=== PATIENT | female | born 1955 | race Caucasian/White ===

== ENCOUNTER → 2016-08-13 | Outpatient (CLI) | payer MEDICARE | LOC: US 07:32 | DX: D47.3 Essential (hemorrhagic) thrombocythemia (principal); R16.0 Hepatomegaly, not elsewhere classified | CPT/HCPCS: 76705 ==

== ENCOUNTER → 2020-07-17 | Outpatient (CLI) | payer OTHER | LOC: KOH-I 12:27 | DX: F17.210 Nicotine dependence, cigarettes, uncomplicated (principal); R59.9 Enlarged lymph nodes, unspecified; R91.8 Other nonspecific abnormal finding of lung field | CPT/HCPCS: 71271 ==

== ENCOUNTER → 2020-09-27 | Outpatient (CLI) | payer OTHER | LOC: HEART 5 12:02 | DX: J41.1 Mucopurulent chronic bronchitis (principal) | CPT/HCPCS: 94010 ==

== ENCOUNTER → 2020-12-11 | Outpatient (CLI) | payer OTHER | LOC: EMI 13:00 | DX: M54.9 Dorsalgia, unspecified (principal); M51.36 Other intervertebral disc degeneration, lumbar region; M43.16 Spondylolisthesis, lumbar region | CPT/HCPCS: 72148 ==

== ENCOUNTER → 2020-12-26 | Outpatient (CLI) | payer OTHER ==
[2020-12-26 15:25] LABS: HEMOGLOBIN 12.3 gm/dl (12.3-15.3); RED BLOOD COUNT 3.37 M/UL (4.00-5.10); WHITE BLOOD COUNT 7.3 K/UL (4.5-11.0)
[2020-12-26 15:51] LABS: BUN/CREATININE RATIO 16 (0-10)
== END ==
LOC: CT 13:00
PROVIDERS: Internal Medicine Hematology & Oncology
DX: D47.3 Essential (hemorrhagic) thrombocythemia (principal); R59.9 Enlarged lymph nodes, unspecified
CPT/HCPCS: 36415; 71260; 80053; 83615; 85025; Q9967

== ENCOUNTER 2021-01-17 11:45 | Emergency (ER) | payer OTHER ==
[2021-01-17] MEDS ORDERED: NORFLEX 100 MG100 MG PO (14:56)
[2021-01-17] MEDS ORDERED: LODINE CAP 300300 MG PO (14:56)
== END 2021-01-17 15:00 | disposition home or self-care (01) ==
LOC: ER1 11:45
DX: S13.4XXA Sprain of ligaments of cervical spine, initial encounter (principal); S23.3XXA Sprain of ligaments of thoracic spine, initial encounter; S33.5XXA Sprain of ligaments of lumbar spine, initial encounter; M25.552 Pain in left hip; M25.551 Pain in right hip; I10 Essential (primary) hypertension; I25.2 Old myocardial infarction; F17.210 Nicotine dependence, cigarettes, uncomplicated; Z88.0 Allergy status to penicillin; V49.9XXA Car occupant (driver) (passenger) injured in unspecified traffic accident, initial encounter
CPT/HCPCS: 71045; 72125; 72128; 72131; 73522; 96372; 99284; J1885